=== PATIENT | female | born 1995 | race Caucasian/White ===

== ENCOUNTER 2018-04-12 19:32 | Emergency (ER) | payer OTHER ==
[2018-04-12] MEDS ORDERED: predniSONE 20 MG Tab PO ONE (20:29)
--- NOTE | 2018-04-12 20:35 | EDM.PDOC ---
ED HPI GENERAL MEDICAL PROBLEM - General Chief Complaint: Skin Complaint Stated Complaint: CHEMICAL REACTION ON HANDS Time Seen by Provider: 04/12/18 20:08 Source of Information: Reports: Patient History Limitations: Reports: No Limitations - History of Present Illness INITIAL COMMENTS - FREE TEXT/NARRATIVE: exposure to cleaning chemicals at work, now hands feel swollen, prickly. concerns of allergic reaction. Onset: Today, Sudden Duration: Hour(s): Location: Reports: Other (hands) Quality: Reports: Burning Severity: Mild Improves with: Reports: None, Other (washed several times with soap and water) Worsens with: Reports: None Associated Symptoms: Reports: No Other Symptoms Bilateral Hand Pain Score (Numeric/FACES): 2 - Related Data Allergies Allergy/AdvReac Type Severity Reaction Status Date / Time No Known Allergies Allergy Verified 04/12/18 19:54 Home Meds: Home Meds NK [No Known Home Meds] 04/12/18 [History] Past Medical History Musculoskeletal History: Reports: Fracture Endocrine/Metabolic History: Reports: Obesity/BMI 30+ Social & Family History - Tobacco Use Smoking Status *Q: Current Every Day Smoker Years of Tobacco use: 1 Packs/Tins Daily: 0.2 - Caffeine Use Caffeine Use: Reports: None - Recreational Drug Use Recreational Drug Use: No - Living Situation & Occupation Occupation: Employed (working a gas station) ED ROS GENERAL - Review of Systems Review Of Systems: See Below Constitutional: Reports: Other (hands feeling swollen and itchy) HEENT: Reports: No Symptoms Respiratory: Reports: No Symptoms Skin: Reports: Other (and with mild redness) Neurological: Reports: No Symptoms Psychiatric: Reports: No Symptoms Hematologic/Lymphatic: Reports: No Symptoms Immunologic: Reports: No Symptoms ED EXAM, SKIN/RASH Exam: See Below Exam Limited By: No Limitations General Appearance: Alert Respiratory/Chest: No Respiratory Distress, Lungs Clear, Normal Breath Sounds, No Accessory Muscle Use Skin: Other (hands with mild redness and edema.) Location, Skin: Palms Characteristics: Other (mild redness) Associated features: Warmth, Tenderness, Inflammation Lymphatic: No Adenopathy Course - Vital Signs Last Recorded V/S: Last Vital Signs Temp 35.9 C 04/12/18 19:56 Pulse 109 H 04/12/18 19:56 Resp 16 04/12/18 19:56 BP 152/108 H 04/12/18 20:03 Pulse Ox 96 04/12/18 19:56 - Orders/Labs/Meds Meds: Medications Discontinued Medications Generic Name Dose Route Start Last Admin Trade Name Greta PRKae Reason Stop Dose Admin Prednisone 20 mg 04/12/18 20:29 04/12/18 20:42 Prednisone PO 04/12/18 20:30 20 mg ONETIME ONE Administration Departure - Departure Time of Disposition: 20:47 Disposition: Home, Self-Care 01 Condition: Good Clinical Impression: Allergic contact dermatitis due to chemical - Discharge Information *PRESCRIPTION DRUG MONITORING PROGRAM REVIEWED*: Not Applicable Instructions: Allergies, Adult, [id number] Referrals: PCP,None [Primary Care Provider] - Forms: ED Department Discharge, ED Return to Work/School Form Care Plan Goals: Allergic contact dermatitis due to chemical -Prednisone daily for three day, given a dose in ER -may use hydrocortisone 1% to hands as needed for itch, swelling, or symptoms. -avoid hot or cold temperatures for the next 3 days. Follow up with Primary Care if not improved or symptoms worsen. - Problem List & Annotations (1) Allergic contact dermatitis due to chemical SNOMED Code(s): 85151657646156702 Code(s): L23.5 - ALLERGIC CONTACT DERMATITIS DUE TO OTHER CHEMICAL PRODUCTS Status: Acute Priority: Medium - Problem List Review Problem List Initiated/Reviewed/Updated: Yes - Assessment/Plan Plan: Allergic contact dermatitis due to chemical -Prednisone daily for three day, given a dose in ER -may use hydrocortisone 1% to hands as needed for itch, swelling, or symptoms. -avoid hot or cold temperatures for the next 3 days. Follow up with Primary Care if not improved or symptoms worsen.
== END 2018-04-12 20:47 | disposition home or self-care (01) ==
LOC: JP.ED 19:32
DX: L23.5 Allergic contact dermatitis due to other chemical products (principal); F17.210 Nicotine dependence, cigarettes, uncomplicated
CPT/HCPCS: 99283; A9270